=== PATIENT | female | born 1965 | race Caucasian/White ===

== ENCOUNTER 2021-08-24 17:28 | Emergency (ER) | payer OTHER ==
[2021-08-24 18:48] VITALS: RESP 18; TEMP 98.4
--- NOTE | 2021-08-24 19:30 | XR ---
EXAMINATION TYPE: XR chest 2V DATE OF EXAM: 08/24/2021 COMPARISON: NONE HISTORY: Short of breath TECHNIQUE: 2 views FINDINGS: Heart is normal. Lungs are clear. Diaphragm is normal. Bony thorax is intact. There is card iac valve surgery. IMPRESSION: No active cardiopulmonary disease.
[2021-08-24] MEDS ORDERED: SODIUM CHLORIDE 0.9% 1,000 ML IV STA (22:38)
[2021-08-24] MEDS ORDERED: IPRATROPIUM-ALBUTEROL 3 ML NEB INHALATION STA (22:38)
[2021-08-24] MEDS ORDERED: methylPREDNISolone SOD SUCCI 125 MG/2 ML VIAL IV STA (22:38)
--- NOTE | 2021-08-24 22:43 | ED ---
General Adult HPI - General Chief complaint: Shortness of Breath Stated complaint: Abnormal EKG sent by PCP Time Seen by Provider: 08/24/21 22:14 Source: patient, RN notes reviewed Mode of arrival: ambulatory Limitations: no limitations - History of Present Illness Initial comments: 56-year-old female presents to the emergency department as directed by her PCP for evaluation of shortness of breath and congested cough 1 month. Patient states her PCP is worried that she has pneumonia. States she is short of breath with any activity and has a tight cough that is occasionally productive with white frothy sputum the past two days. Patient states she uses albuterol via nebulizer at home but has not had any improvement with this. Reports history of valve replacement approximately 12 months ago. States her entire household has been sick and she tested positive for Influenza A today. Denies fever, chills, dizziness, chest pain, abdominal pain, nausea, vomiting, diarrhea, or dysuria. - Related Data Home Medications Medication Instructions Recorded Confirmed Gabapentin 600 mg PO DIRECTED 08/24/21 08/24/21 Levothyroxine Sodium [Synthroid] 50 mcg PO DIRECTED 08/24/21 08/24/21 Metoprolol Tartrate [Lopressor] 25 mg PO DIRECTED 08/24/21 08/24/21 Previous Rx's Medication Instructions Recorded Albuterol Sulfate [Ventolin HFA] 1 - 2 puff INHALATION Q6H PRN #1 08/25/21 each Oseltamivir [Tamiflu] 75 mg PO Q12HR #10 cap 08/25/21 Allergies Allergy/AdvReac Type Severity Reaction Status Date / Time No Known Allergies Allergy Verified 08/24/21 23:35 Review of Systems ROS Statement: Those systems with pertinent positive or pertinent negative responses have been documented in the HPI. ROS Other: All systems not noted in ROS Statement are negative. Past Medical History Past Medical History: Hypertension, Thyroid Disorder History of Any Multi-Drug Resistant Organisms: None Reported Past Surgical History: Hysterectomy Additional Past Surgical History / Comment(s): heart valve, Past Psychological History: No Psychological Hx Reported Smoking Status: Current every day smoker Past Alcohol Use History: None Reported Past Drug Use History: None Reported General Exam Limitations: no limitations General appearance: alert, in distress (Well-developed, well-nourished female who become short of breath with repositioning and activity. Initial temperature 98.4, pulse 82, respirations 18, blood pressure 184/92, pulse ox 98% on room air.) Eye exam: Present: normal appearance. Absent: scleral icterus, conjunctival injection ENT exam: Present: normal exam, normal oropharynx, mucous membranes moist Respiratory exam: Present: wheezes (Course wheezes noted throughout all lung guerrero.), other (Patient is short of breath and tachypneic with activity such as repositioning. Tight congested nonproductive cough noted). Absent: normal lung sounds bilaterally, chest wall tenderness Cardiovascular Exam: Present: regular rate, normal rhythm, normal heart sounds. Absent: systolic murmur, diastolic murmur, rubs, gallop, clicks GI/Abdominal exam: Present: soft, normal bowel sounds. Absent: distended, tenderness, guarding, rebound, rigid Extremities exam: Present: normal inspection, full ROM, normal capillary refill. Absent: tenderness, pedal edema, joint swelling, calf tenderness Neurological exam: Present: alert, oriented X3, CN II-XII intact Psychiatric exam: Present: anxious Skin exam: Present: warm, dry, intact, normal color. Absent: rash Course Vital Signs 08/24/21 08/24/21 08/24/21 18:44 22:54 23:09 Temperature 98.4 F Pulse Rate 82 84 Respiratory 18 20 18 Rate Blood Pressure 184/92 178/107 O2 Sat by Pulse 98 94 L Oximetry 08/24/21 08/24/21 08/25/21 23:19 23:28 02:58 Temperature Pulse Rate 80 82 78 Respiratory Rate Blood Pressure 161/100 O2 Sat by Pulse 97 Oximetry - Reevaluation(s) Reevaluation #1: 08/25/21 00:00 Upon reassessment, patient is resting for more comfortably. Lung sounds have faint scattered wheezes. Vital signs are stable. Laboratory studies are pending. Will continue to monitor. Medical Decision Making - Medical Decision Making This is a 56-year-old male with a past medical history of hypertension, thyroid disorder, and valve replacement that presents to the emergency department for evaluation of congested cough and shortness of breath. Patient is a smoker. States her symptoms have been ongoing for months, however acutely worsened 2 days ago and tested positive for influenza today. Upon exam, patient is noted to have a tight congested cough and wheezing lung sounds. She appears to be feeling poorly though is in no acute distress. She was given IV fluids, Toradol, steroid, and a DuoNeb with improvement. Chest x-ray was negative. Laboratory studies were reviewed showing an elevated d-dimer at 1.35; CT was negative for PE. EKG shows normal sinus rhythm with no ectopy or ST segment changes. Findings were discussed with patient at length. She is felt to be within an acceptable timeframe for Tamiflu therefore a prescription will be sent to the pharmacy. Patient will also be prescribed an albuterol inhaler. She will be discharged home to follow up with her PCP for a recheck on Friday. Return parameters discussed in detail. Patient verbalizes understanding and agr ees with this plan. Attending: Angel Luis. - Lab Data Result diagrams: 08/24/21 22:55 08/24/21 22:55 Lab Results 08/24/21 08/24/21 08/24/21 Range/Units 22:55 22:55 22:55 WBC 9.3 (3.8-10.6) k/uL RBC 4.54 (3.80-5.40) m/uL Hgb 12.9 (11.4-16.0) gm/dL Hct 40.5 (34.0-46.0) % MCV 89.2 (80.0-100.0) fL MCH 28.4 (25.0-35.0) pg MCHC 31.8 (31.0-37.0) g/dL RDW 12.9 (11.5-15.5) % Plt Count 223 (150-450) k/uL MPV 8.4 Neutrophils % 62 % Lymphocytes % 27 % Monocytes % 6 % Eosinophils % 2 % Basophils % 1 % Neutrophils # 5.8 (1.3-7.7) k/uL Lymphocytes # 2.5 (1.0-4.8) k/uL Monocytes # 0.6 (0-1.0) k/uL Eosinophils # 0.2 (0-0.7) k/uL Basophils # 0.1 (0-0.2) k/uL PT 10.3 (9.0-12.0) sec INR 0.9 (<1.2) APTT 23.4 (22.0-30.0) sec D-Dimer (<0.60) mg/L FEU Sodium 138 (137-145) mmol/L Potassium 4.6 (3.5-5.1) mmol/L Chloride 105 (98-107) mmol/L Carbon Dioxide 25 (22-30) mmol/L Anion Gap 8 mmol/L BUN 12 (7-17) mg/dL Creatinine 0.78 (0.52-1.04) mg/dL Est GFR (CKD-EPI)AfAm >90 (>60 ml/min/1.73 sqM) Est GFR (CKD-EPI)NonAf 86 (>60 ml/min/1.73 sqM) Glucose 86 (74-99) mg/dL Plasma Lactic Acid Timoteo (0.7-2.0) mmol/L Calcium 9.2 (8.4-10.2) mg/dL Magnesium (1.6-2.3) mg/dL Total Bilirubin 1.1 (0.2-1.3) mg/dL AST 30 (14-36) U/L ALT 14 (4-34) U/L Alkaline Phosphatase 89 (38-126) U/L Troponin I (0.000-0.034) ng/mL NT-Pro-B Natriuret Pep pg/mL Total Protein 7.4 (6.3-8.2) g/dL Albumin 4.5 (3.5-5.0) g/dL 08/24/21 08/24/21 08/24/21 Range/Units 22:55 22:55 22:55 WBC (3.8-10.6) k/uL RBC (3.80-5.40) m/uL Hgb (11.4-16.0) gm/dL Hct (34.0-46.0) % MCV (80.0-100.0) fL MCH (25.0-35.0) pg MCHC (31.0-37.0) g/dL RDW (11.5-15.5) % Plt Count (150-450) k/uL MPV Neutrophils % % Lymphocytes % % Monocytes % % Eosinophils % % Basophils % % Neutrophils # (1.3-7.7) k/uL Lymphocytes # (1.0-4.8) k/uL Monocytes # (0-1.0) k/uL Eosinophils # (0-0.7) k/uL Basophils # (0-0.2) k/uL PT (9.0-12.0) sec INR (<1.2) APTT (22.0-30.0) sec D-Dimer (<0.60) mg/L FEU Sodium (137-145) mmol/L Potassium (3.5-5.1) mmol/L Chloride (98-107) mmol/L Carbon Dioxide (22-30) mmol/L Anion Gap mmol/L BUN (7-17) mg/dL Creatinine (0.52-1.04) mg/dL Est GFR (CKD-EPI)AfAm (>60 ml/min/1.73 sqM) Est GFR (CKD-EPI)NonAf (>60 ml/min/1.73 sqM) Glucose (74-99) mg/dL Plasma Lactic Acid Timoteo 0.6 L (0.7-2.0) mmol/L Calcium (8.4-10.2) mg/dL Magnesium (1.6-2.3) mg/dL Total Bilirubin (0.2-1.3) mg/dL AST (14-36) U/L ALT (4-34) U/L Alkaline Phosphatase (38-126) U/L Troponin I <0.012 (0.000-0.034) ng/mL NT-Pro-B Natriuret Pep 427 pg/mL Total Protein (6.3-8.2) g/dL Albumin (3.5-5.0) g/dL 08/24/21 08/24/21 Range/Units 22:55 22:55 WBC (3.8-10.6) k/uL RBC (3.80-5.40) m/uL Hgb (11.4-16.0) gm/dL Hct (34.0-46.0) % MCV (80.0-100.0) fL MCH (25.0-35.0) pg MCHC (31.0-37.0) g/dL RDW (11.5-15.5) % Plt Count (150-450) k/uL MPV Neutrophils % % Lymphocytes % % Monocytes % % Eosinophils % % Basophils % % Neutrophils # (1.3-7.7) k/uL Lymphocytes # (1.0-4.8) k/uL Monocytes # (0-1.0) k/uL Eosinophils # (0-0.7) k/uL Basophils # (0-0.2) k/uL PT (9.0-12.0) sec INR (<1.2) APTT (22.0-30.0) sec D-Dimer 1.35 H (<0.60) mg/L FEU Sodium (137-145) mmol/L Potassium (3.5-5.1) mmol/L Chloride (98-107) mmol/L Carbon Dioxide (22-30) mmol/L Anion Gap mmol/L BUN (7-17) mg/dL Creatinine (0.52-1.04) mg/dL Est GFR (CKD-EPI)AfAm (>60 ml/min/1.73 sqM) Est GFR (CKD-EPI)NonAf (>60 ml/min/1.73 sqM) Glucose (74-99) mg/dL Plasma Lactic Acid Timoteo (0.7-2.0) mmol/L Calcium (8.4-10.2) mg/dL Magnesium 1.9 (1.6-2.3) mg/dL Total Bilirubin (0.2-1.3) mg/dL AST (14-36) U/L ALT (4-34) U/L Alkaline Phosphatase (38-126) U/L Troponin I (0.000-0.034) ng/mL NT-Pro-B Natriuret Pep pg/mL Total Protein (6.3-8.2) g/dL Albumin (3.5-5.0) g/dL - EKG Data EKG shows normal: sinus rhythm Rate: normal EKG Comments: EKG obtained at 2223 shows sinus rhythm. Ventricular rate 79, CA interval 131, QRS duration 89, QT/QTC 395/4:30. Interpretation normal ECG. - Radiology Data Radiology results: report reviewed, image reviewed Two-view chest x-ray was obtained. Report was reviewed in its entirety. Impression per Dr. Almanza is no active cardiopulmonary disease. CT chest anterior for PE was obtained. Report was reviewed in its entirety. Impression per Dr. Almanza is negative CT angiogram of the chest. No evidence of pulmonary embolism. Disposition Clinical Impression: Shortness of breath, Viral illness Disposition: HOME SELF-CARE Condition: Stable Instructions (If sedation given, give patient instructions): Influenza (ED) Additional Instructions: Rest. Increase fluids. Take Tylenol or Motrin for fever and/or body aches. Tamiflu is an antiviral medication. Take with food in your stomach. You were being prescribed an albuterol inhaler for shortness of breath and wheezing. Follow-up with your PCP for a recheck on Friday. Do not hesitate to return to the emergency department with any new, worsening, or concerning symptoms. Prescriptions: Oseltamivir [Tamiflu] 75 mg PO Q12HR #10 cap Albuterol Sulfate [Ventolin HFA] 1 - 2 puff INHALATION Q6H PRN #1 each PRN Reason: Wheezing Is patient prescribed a controlled substance at d/c from ED?: No Referrals: Vickie Alberto MD [Primary Care Provider] - 1-2 days Time of Disposition: 02:16
[2021-08-24 23:29] LABS: Basophils # (A) 0.1 k/uL (0-0.2); Basophils % (A) 1 %; Eosinophils # (A) 0.2 k/uL (0-0.7); Eosinophils % (A) 2 %; HCT 40.5 % (34.0-46.0); HGB 12.9 gm/dL (11.4-16.0); Lymphocytes # (A) 2.5 k/uL (1.0-4.8); Lymphocytes % (A) 27 %; MCH 28.4 pg (25.0-35.0); MCHC 31.8 g/dL (31.0-37.0); MCV 89.2 fL (80.0-100.0); Mean Platelet Volume 8.4; Monocytes # (A) 0.6 k/uL (0-1.0); Monocytes % (A) 6 %; Neutrophils # (A) 5.8 k/uL (1.3-7.7); Neutrophils % (A) 62 %; Platelet Count 223 k/uL (150-450); RBC 4.54 m/uL (3.80-5.40); RDW 12.9 % (11.5-15.5); WBC 9.3 k/uL (3.8-10.6)
[2021-08-24 23:41] LABS: INR 0.9 (<1.2); Partial Thromboplastin Time 23.4 sec (22.0-30.0); Prothrombin Time 10.3 sec (9.0-12.0)
[2021-08-24 23:47] LABS: ALT 14 U/L (4-34); African American GFR (CKD) >90 (>60 ml/min/1.73 sqM); Albumin 4.5 g/dL (3.5-5.0); Anion Gap 8 mmol/L; Blood Urea Nitrogen 12 mg/dL (7-17); Calcium 9.2 mg/dL (8.4-10.2); Carbon Dioxide 25 mmol/L (22-30); Chloride 105 mmol/L (98-107); Glucose 86 mg/dL (74-99); Non-African American GFR(CKD) 86 (>60 ml/min/1.73 sqM); Sodium 138 mmol/L (137-145); Total Bilirubin 1.1 mg/dL (0.2-1.3); Total Protein 7.4 g/dL (6.3-8.2)
[2021-08-25 00:07] LABS: AST 30 U/L (14-36); Alkaline Phosphatase 89 U/L (38-126); Potassium 4.6 mmol/L (3.5-5.1)
[2021-08-25] MEDS ORDERED: KETOROLAC 15 MG/ML 1 ML VIAL IVP STA (01:10)
--- NOTE | 2021-08-25 01:30 | CT ---
EXAMINATION TYPE: CT chest angio for PE DATE OF EXAM: 08/25/2021 COMPARISON: None HISTORY: SOB CT DLP: 294.3 mGycm Automated exposure control for dose reduction was used. CONTRAST: Performed with IV Contrast, patient injected with 80 mL of Isovue 370. Images obtained from the thoracic inlet to the diaphragm with IV contrast. There are Three-D postprocessed images. The lungs are clear of infiltrate. No pulmonary mass. No pleural effusion. Heart size is fairly brett l. No pericardial effusion. The thoracic aorta is intact. No aneurysm. The ascending aorta measures 3 .2 cm. No dissection. There is no evidence of filling defect in the pulmonary arteries. The thoracic spine is intact. Caballero um is intact. There are sternal wires. IMPRESSION: Negative CT angiogram of the chest. No evidence of pulmonary embolism.
[2021-08-25] MEDS ORDERED: OSELTAMIVIR 75 MG CAP PO STA (02:10)
[2021-08-25 03:00] VITALS: BP 161/100; PULSE 78
== END 2021-08-25 02:59 | disposition home or self-care (01) ==
LOC: EC 17:28
DX: B34.9 Viral infection, unspecified (principal); I10 Essential (primary) hypertension; E07.9 Disorder of thyroid, unspecified; F17.200 Nicotine dependence, unspecified, uncomplicated; Z79.899 Other long term (current) drug therapy; Z79.890 Hormone replacement therapy
CPT/HCPCS: 36415; 94640; 93005; 85379; 83880; 80053; 83605; 83735; 84484; 85025; 85610; 85730; 71046; 71275; 99285; 96374; 96375; 96361; J2930; J1885; Q9967